=== PATIENT | female | born 1955 | race Hispanic/Latino ===

== ENCOUNTER 2020-08-25 08:11 | Outpatient (CLI) | payer MEDICARE, BC ==
--- NOTE | 2020-08-25 08:47 | MMO ---
Bilateral MAMMO Bilat Screen [facility]. CLINICAL HISTORY: Patient is 65 years old and is seen for screening. The patient has no family history of breast cancer. The patient has no personal history of cancer. VIEWS: The views performed were: bilateral craniocaudal with tomosynthesis and bilateral mediolateral oblique with tomosynthesis. FILMS COMPARED: No prior imaging studies are available for comparison. This study has been interpreted with the assistance of computer-aided detection. MAMMOGRAM FINDINGS: There are scattered fibroglandular densities. There are vascular calcifications seen in both breasts. There are no suspicious masses, suspicious calcifications, or new areas of architectural distortion. IMPRESSION: A ROUTINE FOLLOW-UP MAMMOGRAM IN 1 YEAR IS RECOMMENDED. THE RESULTS OF THIS EXAM WERE SENT TO THE PATIENT. ACR BI-RADS Category 2 - Benign finding MAMMOGRAPHY NOTE: 1. A negative mammogram report should not delay a biopsy if a dominant of clinically suspicious mass is present. 2. Approximately 10% to 15% of breast cancers are not detected by mammography. 3. Adenosis and dense breasts may obscure an underlying neoplasm. Reported by: KATELIN SNIDER MD Electonically Signed: [id number]
--- NOTE | 2020-08-25 09:04 | BD ---
EXAM: DEXA bone density examination HISTORY: 65-year-old postmenopausal female for screening COMPARISON: None FINDINGS: L1--bone mineral density 0.612 g/sq cm; T score -3.4 L2--bone mineral density 0.606 g/sq cm; T score -3.8 L3--bone mineral density 0.752 g/sq cm; T score -3.0 L4--bone mineral density 0.627 g/sq cm; T score -3.9 Total L1-L4--bone mineral density 0.649 g/sq cm; T score -3.6 Left femoral neck--bone mineral density0.552; T score -2.7 Total proximal left femur--bone mineral density 0.734; T score -1.7 IMPRESSION: Osteoporosis.
== END 2020-08-25 08:12 | disposition home or self-care (01) ==
LOC: BICMAMMO 08:11
PROVIDERS: ATTEND Family Medicine
DX: Z12.31 Encounter for screening mammogram for malignant neoplasm of breast (principal); Z13.820 Encounter for screening for osteoporosis; M81.0 Age-related osteoporosis without current pathological fracture; Z78.0 Asymptomatic menopausal state
CPT/HCPCS: 77063; 77067; 77080

== ENCOUNTER 2021-10-09 12:55 | Outpatient (CLI) | payer MEDICARE, BC | END 2021-10-09 12:56 | disposition home or self-care (01) | LOC: BICMAMMO 12:55 | PROVIDERS: ATTEND Family Medicine | DX: Z12.31 Encounter for screening mammogram for malignant neoplasm of breast (principal) | CPT/HCPCS: 77063; 77067 ==

== ENCOUNTER 2022-10-11 07:55 | Outpatient (CLI) | payer MEDICARE, BC | END 2022-10-11 07:56 | disposition home or self-care (01) | LOC: BICMAMMO 07:55 | PROVIDERS: ATTEND Family Medicine | DX: Z12.31 Encounter for screening mammogram for malignant neoplasm of breast (principal) | CPT/HCPCS: 77063; 77067 ==

== ENCOUNTER 2023-11-21 09:18 | Outpatient (CLI) | payer MEDICARE | END 2023-11-21 09:19 | disposition home or self-care (01) | LOC: BICMAMMO 09:18 | PROVIDERS: ATTEND Family Medicine | DX: Z12.31 Encounter for screening mammogram for malignant neoplasm of breast (principal) | CPT/HCPCS: 77063; 77067 ==